=== PATIENT | male | born 1980 | race Caucasian/White ===

== ENCOUNTER → 2022-09-12 | Outpatient (CLI) | payer OTHER, SELFPAY ==
[2022-09-12 13:16] LABS: Free T3 3.2 pg/mL (2.18-3.98); T4 Free Direct 0.86 ng/dL (0.76-1.46); Thyroid Stim Hormone (TSH) 2.48 uIU/mL (0.358-3.74)
[2022-09-13 08:11] LABS: Thyroid Peroxidase AB < 9 IU/mL (0-34)
[2022-09-14 10:08] LABS: Anti-Nuclear Antibody Test Negative (.)
== END | disposition home or self-care (01) ==
LOC: MTLAB 09:49
PROVIDERS: PCP Family Medicine; Referring Provider Dermatology; Visit Provider Dermatology
DX: L63.8 Other alopecia areata (principal)
CPT/HCPCS: 36415; 84439; 84443; 84481; 86038; 86376